=== PATIENT | female | born 1985 | race Caucasian/White ===

== ENCOUNTER → 2020-02-18 13:59 | Outpatient (REF) | payer OTHER, SELFPAY | LOC: HO.SL 13:59 | PROVIDERS: Visit Provider Internal Medicine Pulmonary Disease | DX: R06.00 Dyspnea, unspecified (principal) | CPT/HCPCS: 95806 ==

== ENCOUNTER 2020-02-18 14:02 | Outpatient (REF) | payer OTHER, SELFPAY ==
--- NOTE | 2020-02-18 | PFT_ITS ---
FLOWS: FEV1 of 112% of predicted at 3.17 L. FVC 102% of predicted at 3.48 L. FEV1 to FVC ratio of 0.91. No bronchodilator response. LUNG VOLUMES: Total lung capacity 97% of predicted at 4.47 L. Residual volume 76% of predicted at 1.04 L. Slow vital capacity 105% of predicted at 3.43 L. Expiratory reserve volume 26% of predicted at 0.31 L. Diffusion capacity is normal. IMPRESSION: No obstructive or restrictive ventilatory defect. No bronchodilator response. Decreased expiratory reserve volume suggests extrathoracic restriction likely secondary to abdominal obesity. Freddy Gooden MD AP/MODL / [id number]
== END 2020-02-18 14:03 | disposition home or self-care (01) ==
LOC: HO.RESP 14:02
PROVIDERS: PCP Internal Medicine; Visit Provider Internal Medicine Pulmonary Disease
DX: R06.02 Shortness of breath (principal)
CPT/HCPCS: 94060; 94727; 94729

== ENCOUNTER → 2020-02-20 11:36 | Outpatient (BNVA) | payer OTHER, SELFPAY | PROVIDERS: PCP Internal Medicine; Referring Provider Internal Medicine; Visit Provider Internal Medicine | DX: Z76.89 Persons encountering health services in other specified circumstances (principal) ==

== ENCOUNTER 2020-02-22 07:27 | Outpatient (REF) | payer OTHER, SELFPAY ==
[2020-02-26 01:18] LABS: Adrenocorticotropic Hormone <5 pg/mL (6-50)
[2020-02-27 15:18] LABS: Dexamethasone 443 ng/dL
== END 2020-02-22 07:28 | disposition home or self-care (01) ==
LOC: HO.LAB 07:27
PROVIDERS: PCP Internal Medicine; Visit Provider Internal Medicine
DX: R68.89 Other general symptoms and signs (principal)
CPT/HCPCS: 80299; 82024; 82533

== ENCOUNTER → 2020-03-26 16:35 | Outpatient (BNVA) | payer OTHER, SELFPAY | PROVIDERS: PCP Internal Medicine; Visit Provider Internal Medicine Pulmonary Disease | DX: Z76.89 Persons encountering health services in other specified circumstances (principal) ==

== ENCOUNTER → 2020-04-07 08:49 | Outpatient (BNVA) | payer OTHER, SELFPAY | PROVIDERS: PCP Internal Medicine; Visit Provider Internal Medicine | DX: Z76.89 Persons encountering health services in other specified circumstances (principal) ==

== ENCOUNTER → 2020-05-30 13:23 | Outpatient (BNVA) | payer OTHER, SELFPAY | PROVIDERS: PCP Internal Medicine; Visit Provider Internal Medicine Pulmonary Disease ==

== ENCOUNTER 2020-07-10 15:06 | Outpatient (REF) | payer OTHER, SELFPAY | END 2020-07-10 15:07 | disposition home or self-care (01) | LOC: HO.HMGCLDS 15:06 | PROVIDERS: PCP Internal Medicine; Visit Provider Physician Assistant | DX: J30.9 Allergic rhinitis, unspecified (principal) | CPT/HCPCS: 36415; 82785; 86003 ==